=== PATIENT | female | born 1990 | race Two or more races ===

== ENCOUNTER 2023-02-05 06:41 | Inpatient (IN) | payer OTHER ==
[~2023-02-05] VITALS: Ht 160 cm; Wt 3.2 kg
[2023-02-05] MEDS ORDERED: PRENATAL TABLE1 EAC1 PO (07:22)
[2023-02-05] MEDS ORDERED: FOLIC ACID0.4 MG PO (07:22)
[2023-02-05] MEDS ORDERED: PEPCID AC20 MG PO (07:22)
[2023-02-08] MEDS ORDERED: Tylenol #3 PO (09:00)
== END 2023-02-08 12:53 | disposition home or self-care (01) | DRG 785 ==
LOC: LDR 06:41 → OB/GYN 11:39
PROVIDERS: ADMIT Obstetrics & Gynecology; ATTEND Obstetrics & Gynecology
PROC: 0UB70ZZ Excision of Bilateral Fallopian Tubes, Open Approach (ICD-10-PCS; 2023-02-05)
PROC: 4A1HXCZ Monitoring of Products of Conception, Cardiac Rate, External Approach (ICD-10-PCS; 2023-02-05)
PROC: 10D00Z1 Extraction of Products of Conception, Low, Open Approach (ICD-10-PCS; principal; 2023-02-05 08:00)
DX: O34.211 Maternal care for low transverse scar from previous cesarean delivery (principal); O99.824 Streptococcus B carrier state complicating childbirth; Z3A.38 38 weeks gestation of pregnancy; Z30.2 Encounter for sterilization; Z20.822 Contact with and (suspected) exposure to COVID-19; Z37.0 Single live birth

== ENCOUNTER 2024-09-15 05:43 | Day surgery (SDC) | payer OTHER ==
[~2024-09-15 05:43] MED LIST: FOLIC ACID0.4 MG PO; PEPCID AC20 MG PO; PRENATAL TABLE1 EAC1 PO; Tylenol #3 PO
[2024-09-15] MEDS ORDERED: POVIDONE-IODINE 118 ML BOTT TOP ONE (08:30)
[2024-09-15] MEDS ORDERED: CEFOXITIN SODIUM 2,000 MG VIAL IV ONE (08:30)
[2024-09-15] MEDS ORDERED: MORGIDOX100 MG PO (09:06)
[2024-09-15] MEDS ORDERED: NAPR500T14 PO (09:06)
[2024-09-15] MEDS ORDERED: PROMETHAZINE HCL 50 MG/ML AMPUL IM ONE (09:15)
[2024-09-15] MEDS ORDERED: MORPHINE SULFATE 4 MG/ML VIAL IV PRN (09:15)
[2024-09-15] MEDS ORDERED: MORPHINE SULFATE 4 MG/ML VIAL IV ONE (13:00)
== END 2024-09-15 14:30 | disposition home or self-care (01) ==
LOC: CIR.AMB 05:43
PROVIDERS: ATTEND Obstetrics & Gynecology
DX: D25.0 Submucous leiomyoma of uterus (principal); N84.0 Polyp of corpus uteri; Z88.6 Allergy status to analgesic agent